=== PATIENT | female | born 1980 | race Caucasian/White ===

== ENCOUNTER 2017-06-24 16:11 | Outpatient (CLI) | payer OTHER | END 2017-06-24 16:12 | LOC: LABRHC 16:11 | PROVIDERS: ATTEND Physician Assistant | DX: R30.0 Dysuria (principal) | CPT/HCPCS: 87086; 87186 ==

== ENCOUNTER 2019-06-15 14:46 | Outpatient (CLI) | payer OTHER ==
--- NOTE | 2019-06-17 14:19 | Diagnostic Imaging Report ---
LEO BLACKMAN [facility] [id number] [facility].[address] [id number] Report Submission Date: Jun 15, 2019 3:10:47 PM CDT Patient Study Name: VALARIE HANNAH Date: Jun 15, 2019 2:55:49 PM CDT Modality Type: DX Gender: F Description: WRIST 3 VIEWS OR MORE : 82 Institution: [facility] Physician: LEO BLACKMAN Left wrist 3 views Indication: Left wrist pain Findings: 3 views of the left wrist without prior reveals no evidence of acute fracture, subluxation or dislocation. Impression: No acute osseous abnormality. Electronically signed on Jun 15, 2019 3:10:47 PM CDT by: Gilberto LANGE
== END 2019-06-15 14:48 ==
LOC: RAD 14:46
PROVIDERS: ATTEND Family Medicine
DX: M25.532 Pain in left wrist (principal)
CPT/HCPCS: 73110